=== PATIENT | male | born 1985 | race Caucasian/White ===

== ENCOUNTER 2018-05-28 18:33 | Emergency (ER) | payer OTHER ==
[2018-05-28 18:39] VITALS: BP 134/92
[2018-05-28] MEDS ORDERED: Fluorescein Sodium TOPICAL* 1 MG TEST STRIP OPHTHALMIC ONE (19:50)
[2018-05-28] MEDS ORDERED: Tetracaine 0.5% OPTH.SOL 4 ML* 1 DROP BTL RIGHT EYE ONE (19:50)
--- NOTE | 2018-05-28 20:04 | ED ---
Throat Pain/Nasal Congestion - HPI Summary HPI Summary: 32-year-old male presents with complaints of right eye pain. States was seen at [facility] emergency room yesterday for 3 day history of right eye pain and noted to have 2 pieces of metal in the eye. They were unable to remove the metal in the emergency room and did not have ophthalmology available so he was instructed to come here today. He has been using erythromycin ointment 3 times a day. Reports mild irritation, redness of the eye, and mild tearing with some blurred vision. Denies fever, chills, diplopia, photophobia, or purulent drainage. - History of Current Complaint Chief Complaint: EDEyeProblem Time Seen by Provider: 05/28/18 19:12 Hx Obtained From: Patient - Allergies/Home Medications Allergies/Adverse Reactions: Allergies Allergy/AdvReac Type Severity Reaction Status Date / Time hydrocodone Allergy GI Upset Verified 05/28/18 18:39 Penicillins Allergy GI Upset Verified 05/28/18 18:39 PMH/Surg Hx/FS Hx/Imm Hx Previously Healthy: Yes - Denies significant PMH Infectious Disease History: No Infectious Disease History: Denies: Traveled Outside the [place] in Last 30 Days - Family History Known Family History: Positive: Non-Contributory - Social History Occupation: Employed Full-time Lives: With Family Alcohol Use: None Substance Use Type: Reports: None Smoking Status (MU): Unknown if Ever Smoked Review of Systems Negative: Fever, Chills Positive: Photophobia, Blurred Vision, Erythema. Negative: Diplopia, Drainage ENT: Negative Cardiovascular: Negative Respiratory: Negative Gastrointestinal: Negative Genitourinary: Negative Musculoskeletal: Negative Skin: Negative Neurological: Negative All Other Systems Reviewed And Are Negative: Yes Physical Exam - Summary Physical Exam Summary: GENERAL APPEARANCE: Well developed, well nourished, alert and cooperative, and appears to be in no acute distress. EYES: PERRL, EOM intact. Vision is grossly intact. Conjunctiva clear left eye. No drainage. Right eye with conjunctival erythema and mild tearing. There is a FB noted in the central visual field on direct observation. After instillation of tetracaine and fluorosceine the right eye was examined under magnification using a Wood's lamp. There was uptake of the stain at the previously seen FB and a second smaller FB was observed immediately inferior and medial to the first. No penetrating injury or corneal abrasion noted. The upper and lower lids were inverted and no FB notes. EARS: External auditory canals and tympanic membranes clear, hearing grossly intact. NOSE: No nasal discharge. THROAT: Pharynx normal No tonsilar inflammation, swelling, exudate, or lesions. Uvula midline. Oral cavity normal. Teeth and gingiva in good general condition. NECK: Neck supple, non-tender without lymphadenopathy. CARDIAC: Normal S1 and S2. No S3, S4 or murmurs. Rhythm is regular. There is no peripheral edema, cyanosis or pallor. Extremities are warm and well perfused. Capillary refill is less than 2 seconds. Peripheral pulses intact. LUNGS: Clear to auscultation without rales, rhonchi, wheezing or diminished breath sounds. ABDOMEN: Positive bowel sounds. Soft, nondistended, nontender. No guarding or rebound. No masses or hepatosplenomegally. MUSKULOSKELETAL: ROM intact to all extremities. No joint erythema or tenderness. Normal muscular development. Normal gait. SKIN: Skin normal color, texture and turgor with no lesions or eruptions. Triage Information Reviewed: Yes Vital Signs On Initial Exam: Initial Vitals Temp Pulse Resp BP Pulse Ox 97.2 F 90 16 134/92 100 05/28/18 18:34 05/28/18 18:34 05/28/18 18:34 05/28/18 18:34 05/28/18 18:34 Vital Signs Reviewed: Yes Procedures - Eye Procedure Right Alcaine Drops Administered: Yes Eye FB Removal: removal w/ cotton swab Antibiotic Ointment/Drps Admin: right eye Diagnostics - Vital Signs Vital Signs Temp Pulse Resp BP Pulse Ox 05/28/18 18:34 97.2 F 90 16 134/92 100 - Laboratory Lab Statement: Any lab studies that have been ordered have been reviewed, and results considered in the medical decision making process. EENT Course/Dx - Course Course Of Treatment: 32-year-old male presents with complaints of right eye pain. States was seen at [facility] emergency room yesterday for 3 day history of right eye pain and noted to have 2 pieces of metal in the eye. They were unable to remove the metal in the emergency room and did not have ophthalmology available so he was instructed to come here today. He has been using erythromycin ointment 3 times a day. Reports mild irritation, redness of the eye, and mild tearing with some blurred vision. Denies fever, chills, diplopia , photophobia, or purulent drainage. Afebrile. Vital signs stable. Exam revealed PERRL, EOM intact. Vision is grossly intact. Conjunctiva clear left eye. No drainage. Right eye with conjunctival erythema and mild tearing. There is a FB noted in the central visual field on direct observation. After instillation of tetracaine and fluorosceine the right eye was examined under magnification using a Wood's lamp. There was uptake of the stain at the previously seen FB and a second smaller FB was observed immediately inferior and medial to the first. No penetrating injury or corneal abrasion noted. The upper and lower lids were inverted and no FB notes. I was able to successfully able to remove the smaller of the 2 foreign bodies using a sterile Q-tip but was unable to remove the larger foreign body. I'm recommending that he continue with the erythromycin ointment 4 times a day. He is to use over-the- counter ibuprofen as needed for pain. I have given him a referral to ophthalmology. He is to call first thing in the morning to schedule an appointment. Anticipatory guidance and warning symptoms were reviewed with the patient. I was notified by the RN afterward that the patient left before receiving his written discharge instructions therefor he did not receive his referral information. - Differential Diagnoses Differential Diagnoses: Conjunctivitis, Corneal Abrasion, Foreign Body, Keratitis, Uveitis - Diagnoses Provider Diagnoses: Foreign body of right eye Discharge - Sign-Out/Discharge Documenting (check all that apply): Patient Departure Patient Received Moderate/Deep Sedation with Procedure: No - Discharge Plan Condition: Stable Disposition: HOME Patient Education Materials: Eye Foreign Body (ED) Referrals: No Primary Care Phys,NOPCP [Primary Care Provider] - Rolan Dallas MD [Medical Doctor] - 1 Day (Call first thing tomorrow morning for appointment.) Additional Instructions: I was able to successfully remove the smaller foreign body from you're high today but was unable to remove the larger one in the center of your eye. Continue to use the antibiotic ointment 4 times a day that was prescribed to you by [facility]. You may use [id number] ibuprofen according to directions as needed for pain. I have given you a referral to ophthalmology. Very important that she call first thing in the morning to schedule an appointment as soon as possible. Return to the emergency room if you have severe pain that is not managed with pain medication, loss of vision, he started having purulent drainage from the eye, or any worsening of symptoms. - Billing Disposition and Condition Condition: STABLE Disposition: Home
== END 2018-05-28 20:30 | disposition home or self-care (01) ==
LOC: ED 18:33
DX: T15.01XA Foreign body in cornea, right eye, initial encounter (principal); X58.XXXA Exposure to other specified factors, initial encounter; Y92.9 Unspecified place or not applicable; Z88.5 Allergy status to narcotic agent; Z88.0 Allergy status to penicillin
CPT/HCPCS: 65220; 99282; A9270-GY